=== PATIENT | female | born 1925 | race Caucasian/White ===

== ENCOUNTER 2016-07-06 10:37 | Outpatient (CLI) | payer MEDICARE, OTHER ==
[2016-07-06 13:01] LABS: ALT (SGPT) 16 U/L (0-55); AST (SGOT) 30 U/L (5-34); Alkaline Phosphatase 97 U/L (40-150); Anion Gap 17 mmol/L (10-20); BUN (Urea Nitrogen) 14 mg/dL (9.8-20.1); Bilirubin, Direct 0.3 mg/dL (0.1-0.3); Bilirubin, Total 0.8 mg/dL (0.2-1.2); Calc. Creatinine Clearance 0 mL/min (70-130); Calcium 9.3 mg/dL (7.8-10.44); Carbon Dioxide 25 mmol/L (23-31); Chloride 99 mmol/L (98-107); Estimated GFR-MDRD 53; LDL Cholesterol, Calculated 81 mg/dL; Protein, Total 7.1 g/dL (5.8-8.1)
[2016-07-06 13:10] LABS: Hemoglobin A1c 5.4 % (4.0-6.0)
[2016-07-06 14:01] LABS: #Basophils 0.1 thou/uL (0.0-0.2); #Eosinphils 0.2 thou/uL (0.0-0.7); #Lymphocytes 0.8 thou/uL (1.20-3.40); #Monocytes 0.5 thou/uL (0.11-0.59); #Neutrophils 4.3 thou/uL (1.40-6.50); %Basophils 1.5 % (0.0-1.0); %Eosinophils 2.6 % (0.0-10.0); %Lymphocytes 14.1 % (21.0-51.0); %Monocytes 8.7 % (0.0-10.0); Anisocytosis SLIGHT = 6-15 cells (100X) (0-5/hpf); Hematocrit 29.3 % (36.0-47.0); Mean Platelet Volume 6.8 fL (7.4-10.4); Microcytosis SLIGHT = 6-15 cells (100X) (0-5/hpf); Ovalocytes SLIGHT = 2-5 cells (100X) (0-1/hpf); Poikilocytosis SLIGHT = 6-15 cells (100X) (0-5/hpf); Red Blood Cell (RBC) Count 3.81 mill/uL (4.20-5.40); Target Cells MODERATE= 6-15 cells (100X) (0-1/hpf); White Blood Cell (WBC) Count 5.9 thou/uL (4.8-10.8)
== END 2016-07-06 10:38 | disposition home or self-care (01) ==
LOC: NAVSJIPCSP 10:37
PROVIDERS: ATTEND Family Medicine
DX: I10 Essential (primary) hypertension (principal); E87.1 Hypo-osmolality and hyponatremia; D64.9 Anemia, unspecified; I25.10 Atherosclerotic heart disease of native coronary artery without angina pectoris; Z79.899 Other long term (current) drug therapy; I50.9 Heart failure, unspecified; R53.1 Weakness
CPT/HCPCS: 36415; 80048; 80061; 80076; 83036; 84443; 85025

== ENCOUNTER 2016-07-28 20:34 | Observation (INO) | payer MEDICARE, OTHER ==
[2016-07-28 21:32] LABS: ALT (SGPT) 11 U/L (0-55); AST (SGOT) 23 U/L (5-34); Albumin 3.8 g/dL (3.4-4.8); Alkaline Phosphatase 109 U/L (40-150); Anion Gap 19 mmol/L (10-20); BUN (Urea Nitrogen) 23 mg/dL (9.8-20.1); Bilirubin, Total 0.6 mg/dL (0.2-1.2); Calc. Creatinine Clearance 0 mL/min (70-130); Calcium 9.1 mg/dL (7.8-10.44); Carbon Dioxide 21 mmol/L (23-31); Chloride 101 mmol/L (98-107); Estimated GFR-MDRD 38; Globulin 3.5 g/dL (2.4-3.5); Glucose 123 mg/dL (83-110); Potassium 4.1 mmol/L (3.5-5.1); Protein, Total 7.3 g/dL (5.8-8.1); Sodium 137 mmol/L (136-145)
[2016-07-28 21:34] LABS: #Basophils 0.1 thou/uL (0.0-0.2); #Eosinphils 0.2 thou/uL (0.0-0.7); #Lymphocytes 0.9 thou/uL (1.20-3.40); #Monocytes 0.5 thou/uL (0.11-0.59); #Neutrophils 3.7 thou/uL (1.40-6.50); %Basophils 1.4 % (0.0-1.0); %Eosinophils 3.4 % (0.0-10.0); %Lymphocytes 17.4 % (21.0-51.0); %Monocytes 9.7 % (0.0-10.0); %Neutrophils 68.1 % (42.0-75.0); Hemoglobin 8.2 g/dL (12.0-16.0); Mean Corpuscular HGB CONC 29.5 g/dL (32.0-36.0); Mean Corpuscular Hemoglobin 22.5 pg (27.0-31.0); Mean Corpuscular Volume 76.3 fl (81.0-99.0); Mean Platelet Volume 7.8 fL (7.4-10.4); Platelet Count 203 thou/uL (130-400); RBC Distribution Width 17.6 % (11.5-14.5); Red Blood Cell (RBC) Count 3.65 mill/uL (4.20-5.40); White Blood Cell (WBC) Count 5.4 thou/uL (4.8-10.8)
[2016-07-28 21:35] LABS: CKMB 0.7 ng/mL (0-6.6); Troponin I Less than 0.010 ng/mL (< 0.028)
--- NOTE | 2016-07-28 21:38 | CT ---
CT BRAIN WITHOUT CONTRAST 07/28/16 HISTORY: Fell at home. Found on floor. Altered mental status and confusion. COMPARISON: CT brain 07/19/16. FINDINGS: Moderate cerebral atrophy. No hemorrhage. No midline shift or mass effect. Ex vacuo dilatation of th e ventricular systems and extra-axial CSF spaces. The calvarium is intact. Large right periorbital soft tissue contusion is new from the comparison ex amination. The paranasal sinuses and mastoids are clear. IMPRESSION: New right periorbital superficial soft tissue contusion. No acute intracranial abnormality. POS: [facility]
--- NOTE | 2016-07-28 21:41 | CT ---
CT FACIAL BONES WITHOUT CONTRAST 07/28/16 HISTORY: Fell at home. Found on floor. Confusion, altered mental status. Right eye hematoma. COMPARISON: None. FINDINGS: There are calcifications of the articular disc of the mandibular condyles bilaterally. The mastoids are clear. Orbital floors are intact. No hemosinus. The mandible is intact. No nasal bone fracture. Right perio rbital soft tissue edema and contusion. Zygoma, zygomatic arches, maxilla, pterygoid plates, are all intact. Dense calcifications of the transverse ligament of the dens. No retrobulbar hematoma. IMPRESSION: Right periorbital soft tissue edema without acute fracture of the face. POS: [facility]
[2016-07-28 23:41] LABS: Bacteria/HPF Rare-Few HPF (None Seen); Bilirubin Negative (Negative); Blood, Urine Negative (Negative); Clarity Clear (Clear); Glucose, Urine (Dipstick) Negative (Negative); Leukocyte Small (Negative); Nitrite Negative (Negative); Protein, Urine (Dipstick) Negative (Neg-Trace); RBC/HPF None Seen HPF (0-3); Urobilinogen 0.2 mg/dL (0.2-1.0)
[2016-07-29] VITALS: BMI 26.7
[2016-07-29] MEDS ORDERED: Ondansetron ODT 4 MG TAB PO PRN ×2 (10:06→10:09)
[2016-07-29] MEDS ORDERED: cloNIDine HCl 0.1 MG TAB PO PRN (10:06)
[2016-07-29] MEDS ORDERED: Montelukast Sodium 10 mg Tablet PO PRN (10:06)
[2016-07-29] MEDS ORDERED: Milk Of Magnesia 30 ML UDCUP PO PRN (10:09)
[2016-07-29] MEDS ORDERED: Acetaminophen 325 MG TAB PO PRN (10:09)
[2016-07-29 11:44] LABS: Digoxin 0.38 ng/mL (0.8-2.0)
[2016-07-29] MEDS ORDERED: Metoprolol Tartrate 50 MG TAB PO SCH ×3 (14:00→22:00)
[2016-07-29] MEDS ORDERED: Potassium Chloride 20 MEQ TAB PO SCH (14:00)
[2016-07-29] MEDS ORDERED: Stress 600 With Zinc 1 TAB PO SCH (14:00)
[2016-07-29] MEDS ORDERED: Furosemide 20 MG TAB PO SCH (14:00)
[2016-07-29] MEDS ORDERED: Docusate 100 MG CAP PO SCH (14:00)
[2016-07-29] MEDS ORDERED: Oxybutynin Chloride 5 MG TAB PO SCH (14:00)
[2016-07-29] MEDS ORDERED: Calcium Carbonate + Vit D 1 TAB PO SCH (14:00)
[2016-07-29] MEDS ORDERED: Ramipril 5 MG CAP PO SCH (14:00)
[2016-07-29] MEDS ORDERED: Digoxin 0.125 MG TAB PO SCH (14:00)
[2016-07-29] MEDS ORDERED: Vitami E (Dl,Tocopheryl Acet) 400 UNITS CAP PO SCH (14:00)
[2016-07-29] MEDS ORDERED: Apixaban 5 MG TAB PO SCH (14:00)
--- NOTE | 2016-07-29 19:07 | SS ---
DATE OF ADMISSION: 07/28/2016 DATE OF SHORT STAY OBSERVATION: 07/29/2016 HISTORY OF PRESENT ILLNESS: The patient is an 89-year-old white female that was at home getting ready to go to bed and when she had taken all of her medications. She was walking down the [address] and she states her legs came out from under her and she fell. She was confused and was actually brought to the emergency room and was found to be having altered mental status. It was felt that the patient needed to be placed in observation to make sure her neuro vital signs were good. Family states she has been having some delusions, hallucinations, especially at night. She will not sleep well and flower buncher or picker things and say weird things. After evaluation of her medications, it was found that the patient is getting tramadol scheduled and is supposedly on a p.r.n., most likely the patient is having some narcotic side effects. Nonetheless, patient was evaluated in the emergency room and felt that she needed observation and was placed in observation. This morning, the patient is oriented to person, place and time. We went over all of her medications and one of her sons is in the room and is somewhat confused about her medication, but we did have a medication list and we went to roll those medications. We will stop her tramadol. The patient will be continued right now in observation until tomorrow morning. We will repeat some lab tomorrow morning. We will get the patient up and around and make sure she is walking well and make sure that she is back to her normal abilities and make sure that she is not hypotensive done tilt. PAST MEDICAL HISTORY: Significant for: 1. Hypertension. 2. Coronary artery disease. 3. Congestive heart failure. 4. Hyponatremia. 5. Generalized weakness. 6. Anxiety and depressive disorder. 7. Anemia. 8. Insomnia. 9. Frequent urinary tract infections. 10. History of atrial fibrillation. PAST SURGICAL HISTORY: 1. Total abdominal hysterectomy. 2. Bilateral salpingo-oophorectomy. 3. x3. 4. Knee surgery [place] [address] Sparks. 5. L1 through L5, back surgery with Dr. Mcgee in January 2014. 6. Tonsillectomy. ALLERGIES: The patient is noted to be allergic to SULFA DRUGS and LATEX. FAMILY HISTORY: Reveals patient's father of a stroke. The patient's mother of hypertension. The patient has many siblings, one had bone cancer and another had brain cancer. SOCIAL HISTORY: The patient denies any tobacco or alcohol use. She has 3 children that are all fairly healthy. CURRENT MEDICATIONS: Reveal the patient is presently on Eliquis 5 mg twice a day, metoprolol 100 mg twice a day, Ramipril 10 mg 2 pills once a day, clonidine 0.1 mg one tablet orally for anytime with systolic blood pressure greater than 180, furosemide 40 mg in the morning and 10 mg in the evening, potassium 20 mEq once a day, oxybutynin 5 mg orally each day, Premarin 0.625 vaginal cream 2 times a week, tramadol 50 mg one to two tablets orally every 4 to 6 hours as needed for pain. We will stop that. Zofran 4 mg p.r.n. nausea, Lotrisone cream twice a day p.r.n. rash, fluticasone nasal spray 2 sprays each nostril in the morning, Singulair 10 mg daily, digoxin 0.125 mcg every morning, Ginkgo biloba daily, vitamin B complex daily, vitamin E, laxative formula which is Herbalax daily, calcium. REVIEW OF SYSTEMS: Reveal the patient states she thought she has actually been doing very well, but she has been kind of tired. She has been having some arthritis type pains. Denies any fever or chills. Denies any night sweats. She states her vision has guiding gotten worse and she states she has not seen an eye doctor. She complains of darkness almost like she has macular degeneration or cataracts and has not gone to see the [facility] room and we will refer her to the fix[facility] boarding room. Denies any upper respiratory cough, cold , congestion or nasal problems. Denies any chest pain, skipping or rapid or slow heartbeat. Denies significant shortness of breath when she exerts herself. Denies any cough, cold, congestion, wheezing or pneumonia type symptoms. Denies any vomiting, but does have some nausea at times. Denies any significant diarrhea, but she does have constipation. Denies any increased frequency, urgency or dysuria. Denies any rashes or lesions. She complains of chronic knee pain and osteoarthritis, but no joint swelling. She denies any acute anxiety or depression. Her sleeping episodes are much better. Denies any significant syncope or seizures. PHYSICAL EXAMINATION: GENERAL: This is a well-developed, well-nourished, very pleasant white female, in no apparent distress at this time. VITAL SIGNS: Blood pressure this morning is 148/76, pulse 90 to 93, respirations 18 to 20, O2 sat 94%-97%. HEENT: Reveals black eye on the right side around the upper eyelash, eyelid, eyebrow and below on the right cheek bone. She has no significant tenderness there. She has no black eye on the left side. She has good nostril inhalation and exhalation. She has no loose teeth. Patient has good ocular movement. Extraocular movements are absolutely intact. Patient has fair site. She complains of darkness. NECK: Supple without masses, nodes or bruits. CHEST: Clear to auscultation without rales, rhonchi or wheezes heard today. CARDIOVASCULAR: Reveals an irregularly irregular rate and rhythm without murmurs, gallops or rubs. ABDOMEN: Obese, soft, nontender, without organomegaly. Normal bowel sounds. No rebound or guarding is noted. GENITOURINARY: Deferred. EXTREMITIES: Reveal no clubbing, cyanosis or edema. MUSCULOSKELETAL: The patient has full range of motion and good strength. NEUROLOGIC: Cranial nerves II through XII are intact. PSYCHOLOGIC: The patient is oriented to person, place, and time at this time. IMPRESSION: 1. Syncopal episode or presyncopal type episode with patient's falls. 2. Narcotic side effects and delusions. 3. Generalized weakness. 4. Hypertension. 5. Coronary artery disease. 6. Atrial fibrillation. 7. Gastroesophageal reflux disease. 8. Anxiety and depressive disorder. 9. Osteoarthritis. 10. Decreased hearing. PLAN: 1. Continue neuro vital signs at this time. 2. We will stop her tramadol. 3. We will restart all her medications. 4. We will do some tilt test. 5. Get digoxin level this morning and will do labs tomorrow morning. 6. Most likely, the plan is that the patient is stable, 7. She will be discharged tomorrow out of observation. ROLANDA
[2016-07-29] MEDS: Docusate 100 MG CAP PO SCH (21:25)
[2016-07-29] MEDS: Apixaban 5 MG TAB PO SCH (21:25)
[2016-07-30 05:35] LABS: Band 5 % (5-11); Eosinophils 2 % (0-10); Hemoglobin 8.1 g/dL (12.0-16.0); Lymphocytes 14 % (21-51); MDiff Complete? YES; Mean Corpuscular Hemoglobin 22.5 pg (27.0-31.0); Mean Corpuscular Volume 74.9 fl (81.0-99.0); Mean Platelet Volume 7.7 fL (7.4-10.4); Microcytosis MODERATE=15-30 cells (100X) (0-5/hpf); Monocytes 12 % (0-10); Neutrophil 66 % (42-75); PLT Morphology Comment Appears Adequate; Platelet Count 205 thou/uL (130-400); Red Blood Cell (RBC) Count 3.59 mill/uL (4.20-5.40)
[2016-07-30 05:38] LABS: Anion Gap 14 mmol/L (10-20); BUN (Urea Nitrogen) 19 mg/dL (9.8-20.1); Calc. Creatinine Clearance 51 mL/min (70-130); Calcium 8.9 mg/dL (7.8-10.44); Carbon Dioxide 25 mmol/L (23-31); Chloride 102 mmol/L (98-107); Estimated GFR-MDRD 62; Glucose 104 mg/dL (83-110); Potassium 3.7 mmol/L (3.5-5.1); Sodium 137 mmol/L (136-145)
[2016-07-30] MEDS ORDERED: Potassium Chloride 20 MEQ TAB PO SCH (08:00)
[2016-07-30] MEDS: Apixaban 5 MG TAB PO SCH (08:59)
[2016-07-30] MEDS ORDERED: Vitami E (Dl,Tocopheryl Acet) 400 UNITS CAP PO SCH (09:00)
[2016-07-30] MEDS ORDERED: Digoxin 0.125 MG TAB PO SCH (09:00)
[2016-07-30] MEDS ORDERED: VIT C NO 3 PO SCH (09:00)
[2016-07-30] MEDS ORDERED: Furosemide 20 MG TAB PO SCH (09:00)
[2016-07-30] MEDS ORDERED: Stress 600 With Zinc 1 TAB PO SCH (09:00)
[2016-07-30] MEDS ORDERED: Non-Formulary Item 1 EACH (Calcium Carbonate/Vitamin D3 [Calcium 600 + Vitamin D] 1 TABLE PO SCH (09:00)
[2016-07-30] MEDS ORDERED: Metoprolol Tartrate 50 MG TAB PO SCH ×2 (09:00)
[2016-07-30] MEDS ORDERED: Oxybutynin Chloride 5 MG TAB PO SCH (09:00)
[2016-07-30] MEDS ORDERED: VITAMIN B COMPLEX PO SCH (09:00)
[2016-07-30] MEDS ORDERED: VITAMIN E MIXED 400 UNIT PO SCH (09:00)
[2016-07-30] MEDS: Docusate 100 MG CAP PO SCH (09:00)
[2016-07-30] MEDS ORDERED: Non-Formulary Item 1 EACH (Ramipril [Ramipril] 20 MG) PO SCH (09:00)
[2016-07-30] MEDS ORDERED: Calcium Carbonate + Vit D 1 TAB PO SCH (09:00)
[2016-07-30] MEDS ORDERED: Ramipril 5 MG CAP PO SCH (09:00)
[2016-07-30] MEDS ORDERED: [UNRECOGNIZED DRUG - OTHER] PO SCH (09:00)
[2016-07-30 09:03] VITALS: BP 145/98
[2016-07-30 11:05] VITALS: TEMP 97.7
--- NOTE | 2016-07-30 16:07 | DIS ---
DATE OF ADMISSION: 07/28/2016 DATE OF DISCHARGE: 07/30/2016 HOSPITAL COURSE: Ms. Decker is a very pleasant 89-year-old white female who was in her usual sta te of being when she was getting ready to go to bed and she had taken all of her medications, she wa s walking down the [address] and she fell. She actually hit her right forehead and has a nice black eye on that side. She was seen in the emergency room, and neuro vital signs were fine, but she had had some delusions and some hallucinations. Apparently, this has been going on for the last several day s. After significant evaluation it was determined that the patient needed to be admitted for neuro vital signs. The patient had her neuro vital signs which remained normal and when she was admitted she was slight ly anemic, but also dehydrated. We did hydrate her and her BUN and creatinine are much improved. S he is feeling much better. She is not having hallucinations or delusions. After significant discussion, it was felt that most likely her delusions especially at night were du e to her getting scheduled tramadol and that was supposed to be a p.r.n. medication that also may be why she was very dizzy, and also she while in the hospital had a tilt test which revealed her blood pressure was significantly dropped when she sat up and stood up. We did decrease her metoprolol to 50 mg twice a day rather than 100 mg twice a day. While in the hospital, the patient has reached maximum medical benefit and is now ready for discharg e. DISCHARGE MEDICATIONS: Will include the same medications she came in on basically with reduction in her metoprolol and the discharge medications are the followin. Eliquis 5 mg b.i.d. 2. Metoprolol tartrate 50 mg b.i.d. 3. Ramipril 10 mg 2 pills once daily. 4. Clonidine 0.1 mg any time if her systolic blood pressure is greater than 180. 5. Furosemide 40 mg in the morning and 20 mg in the evening. 6. Potassium 20 mEq once daily. 7. Oxybutynin 5 mg daily. 8. Premarin 0.625 vaginal cream 2 times a week. 9. Tramadol p.r.n. severe pain not scheduled. 10. Zofran 4 mg p.r.n. nausea and vomiting. 11. Lotrisone cream p.r.n. rash. 12. Fluticasone nasal spray 2 sprays each nostril in the morning. 13. Singulair 10 mg at bedtime. 14. Digoxin 0.125 mg daily. 15. Ginkgo biloba daily. 16. Vitamin B complex daily. 17. Vitamin E complex daily. 18. Laxative, which is Herbolax daily. 19. Calcium daily. PHYSICAL EXAMINATION: GENERAL: This is a well-developed, well-nourished, very pleasant white female in no apparent distre ss, back to her usual state of being. HEENT: Reveals black eye on the right side starting from the upper eyebrow down to the right cheek bone. She has no significant tenderness there. CT scan was unremarkable for facial fractures. She has good range of motion in that eye. Extraocular movements are intact. Nose and throat are sligh tly dry. NECK: Supple, without masses, nodes or bruits. CHEST: Clear to auscultation. No rales, rhonchi, wheeze or cough was noted. The patient does noti ce that her neck and her posterior chest are somewhat achy mostly from the fall. HEART: An irregularly irregular rate and rhythm without murmurs, gallops or rubs. ABDOMEN: Obese, soft, nontender, without organomegaly. Normal bowel sounds are noted. No rebound or guarding is noted. GENITOURINARY: Deferred. EXTREMITIES: No clubbing, cyanosis or edema. MUSCULOSKELETAL: The patient has good range of motion, some achiness in her left neck and her left posterior chest wall. NEUROLOGIC: Cranial nerves II-XII were intact. No focal deficits are noted. The patient is orient ed to person, place, and time. IMPRESSION: 1. Presyncopal type episode most likely orthostatic hypotension. 2. Narcotic side effects with delusions, hallucinations, resolved. 3. Generalized weakness. 4. Hypertension. 5. Coronary artery disease. 6. Atrial fibrillation. 7. Gastroesophageal reflux. 8. Anxiety depressive disorder. 9. Osteoarthritis. 10. Decreased hearing. PLAN: 1. The patient is ready for discharge. She has reached maximum medical benefit. 2. Decrease metoprolol to 50 mg twice a day. 3. Stop her scheduled tramadol and only make it p.r.n. severe pain. 4. The patient is encouraged to drink 60-80 ounces of liquid a day. 5. The patient will follow up with me in a couple of weeks. LABORATORIES: Admit white count was 5400, discharge was 7000, admit hemoglobin was 8.2, at discharg e is 8.1, after significant volume expansion. Hematocrit was 27.8 on admission, 26.9 on discharge. The patient's sodium was 137 on admission, 137 on discharge. Potassium was 3.7 on discharge. Her B UN was 23 on admission and 19 on discharge, and her creatinine was 1.32 on admission and 0.86 on dis charge. GFR has gone up from 38 up to 62. Glucose this morning was 104.
[2016-08-01] MEDS ORDERED: Estrogens, Conjugated 30 GM TUBE VAG SCH (09:00)
== END 2016-07-30 12:55 | disposition home health service (06) ==
LOC: NAV ERS 20:34 → NAV ACUTE 23:38
PROVIDERS: ADMIT Family Medicine; ATTEND Family Medicine
DX: R55 Syncope and collapse (principal); R44.3 Hallucinations, unspecified; T40.4X5A Adverse effect of other synthetic narcotics, initial encounter; R53.1 Weakness; I10 Essential (primary) hypertension; I25.10 Atherosclerotic heart disease of native coronary artery without angina pectoris; I48.91 Unspecified atrial fibrillation; K21.9 Gastro-esophageal reflux disease without esophagitis; F41.8 Other specified anxiety disorders; Z79.01 Long term (current) use of anticoagulants; Z79.899 Other long term (current) drug therapy; M19.90 Unspecified osteoarthritis, unspecified site; E86.0 Dehydration; D64.9 Anemia, unspecified; I95.9 Hypotension, unspecified; Z87.440 Personal history of urinary (tract) infections; H91.90 Unspecified hearing loss, unspecified ear
CPT/HCPCS: 36415; 70450; 70486; 80048; 80053; 80162; 81001; 82553; 84484; 85025; 93005; A4216; G0378

== ENCOUNTER 2016-09-17 07:52 | Outpatient (CLI) | payer MEDICARE, OTHER ==
[2016-09-17 10:35] LABS: Amylase 89 U/L (20-160); Anion Gap 17 mmol/L (10-20); BUN (Urea Nitrogen) 19 mg/dL (9.8-20.1); Calc. Creatinine Clearance 0 mL/min (70-130); Calcium 9.5 mg/dL (7.8-10.44); Carbon Dioxide 23 mmol/L (23-31); Chloride 105 mmol/L (98-107); Estimated GFR-MDRD 59; Glucose 86 mg/dL (83-110); Lipase 78 U/L (8-78); Potassium 3.7 mmol/L (3.5-5.1); Sodium 141 mmol/L (136-145)
[2016-09-17 11:37] LABS: #Basophils 0.1 thou/uL (0.0-0.2); #Eosinphils 0.2 thou/uL (0.0-0.7); #Lymphocytes 0.8 thou/uL (1.20-3.40); #Monocytes 0.4 thou/uL (0.11-0.59); #Neutrophils 3.4 thou/uL (1.40-6.50); %Basophils 1.3 % (0.0-1.0); %Eosinophils 3.2 % (0.0-10.0); %Lymphocytes 16.9 % (21.0-51.0); %Monocytes 7.8 % (0.0-10.0); %Neutrophils 70.7 % (42.0-75.0); Hemoglobin 8.3 g/dL (12.0-16.0); Mean Corpuscular HGB CONC 29.5 g/dL (32.0-36.0); Mean Corpuscular Hemoglobin 21.7 pg (27.0-31.0); Mean Corpuscular Volume 73.7 fl (81.0-99.0); Mean Platelet Volume 7.7 fL (7.4-10.4); Platelet Count 224 thou/uL (130-400); RBC Distribution Width 17.6 % (11.5-14.5); Red Blood Cell (RBC) Count 3.79 mill/uL (4.20-5.40); White Blood Cell (WBC) Count 4.7 thou/uL (4.8-10.8)
[2016-09-17 11:38] LABS: Anisocytosis SLIGHT = 6-15 cells (100X) (0-5/hpf); Hypochromia SLIGHT = 6-15 cells (100X) (0-5/hpf); MDiff Complete? YES; Microcytosis SLIGHT = 6-15 cells (100X) (0-5/hpf); PLT Morphology Comment Appears Adequate; Tear Drops MODERATE= 6-15 cells (100X) (0-1/hpf)
--- NOTE | 2016-09-17 12:45 | ULT ---
GALLBLADDER ULTRASOUND: Date: 09/17/16 HISTORY: Right upper quadrant pain. FINDINGS: The liver demonstrates homogeneous echotexture without focal mass or intrahepatic ductal dilatation. Multiple shadowing mobile gallstones are seen without gallbladder wall thickening or pericholecysti c fluid. The largest of the gallstones measures 1.5 cm. The common duct measures 4.0 mm in diameter. Right kidney and pancreas appear normal. No free fluid seen in Morison's pouch. IMPRESSION: Cholelithiasis. POS: [facility]
== END 2016-09-17 07:53 | disposition home or self-care (01) ==
LOC: NAV ULT 07:52
PROVIDERS: ATTEND Family Medicine
DX: R10.13 Epigastric pain (principal); K80.20 Calculus of gallbladder without cholecystitis without obstruction
CPT/HCPCS: 36415; 76705; 80048; 82150; 83690; 85025

== ENCOUNTER 2016-09-21 14:53 | Outpatient (CLI) | payer MEDICARE, OTHER | END 2016-09-21 14:54 | disposition home or self-care (01) | LOC: NAV LABSP 14:53 | PROVIDERS: ATTEND Family Medicine | DX: R10.13 Epigastric pain (principal) | CPT/HCPCS: 82274 ==

== ENCOUNTER 2017-01-05 11:31 | Outpatient (CLI) | payer MEDICARE, OTHER ==
[2017-01-05 13:24] LABS: Bilirubin Negative (Negative); Blood, Urine Negative (Negative); Clarity Clear (Clear); Glucose, Urine (Dipstick) Negative (Negative); Leukocyte Small (Negative); Nitrite Negative (Negative); Protein, Urine (Dipstick) Negative (Neg-Trace); Urobilinogen 0.2 mg/dL (0.2-1.0); pH, Urine 6.5 (5.0-9.0)
[2017-01-05 13:49] LABS: Bacteria/HPF 2+ HPF (None Seen); RBC/HPF 0-3 HPF (0-3); Squamous Epithelial 0-3 HPF (0-3)
== END 2017-01-05 11:32 | disposition home or self-care (01) ==
LOC: NAVSJIPCSP 11:31
DX: R30.0 Dysuria (principal)
CPT/HCPCS: 36415; 81003; 81015; 87077; 87086; 87186